=== PATIENT | female | born 1955 | race Caucasian/White ===

== ENCOUNTER 2020-04-26 07:29 | Emergency (ER) | payer MEDICAID, MEDICARE ==
[~2020-04-26] VITALS: Ht 160 cm; Wt 53.5 kg
[2020-04-26 07:38] VITALS: BP 184/120
[2020-04-26] MEDS ORDERED: TDAP [DIPH/PERTUSSIS/TET] 0.5 ML VIAL IM ONE ×2 (07:48→08:00)
--- NOTE | 2020-04-26 07:55 | NUR ---
MEDICATED ORDERED. D/C HOME IN STABLE CONDITION.
== END 2020-04-26 07:57 | disposition home or self-care (01) ==
LOC: ER 07:39
DX: S61.451A Open bite of right hand, initial encounter (principal); L03.113 Cellulitis of right upper limb; I10 Essential (primary) hypertension; W55.01XA Bitten by cat, initial encounter; Y93.89 Activity, other specified; Y92.89 Other specified places as the place of occurrence of the external cause; Y99.8 Other external cause status
CPT/HCPCS: 90715